=== PATIENT | male | born 1990 | race African-American/Black ===

== ENCOUNTER 2018-04-26 19:02 | Emergency (ER) | payer MEDICAID ==
[~2018-04-26] VITALS: Ht 177.8 cm; Wt 72.6 kg
[2018-04-26] MEDS ORDERED: IBUPROFEN600 MG ORAL (20:48)
[2018-04-26] MEDS ORDERED: AUGMENTIN 875-1 EAC1 ORAL (20:48)
[2018-04-26 20:55] VITALS: BP_SYST 127; BP_DIAS 62; BP_DIAS 63
--- NOTE | 2018-04-26 21:10 | Diagnostic Imaging Report ---
EXAM: XR Left Hand Complete, 3 or More Views CLINICAL HISTORY: PAIN TECHNIQUE: Frontal, lateral and oblique views of the left hand. COMPARISON: No relevant prior studies available. FINDINGS: Bones/joints: Unremarkable. No acute fracture. No dislocation. Soft tissues: Suspect mild soft tissue swelling the dorsum of hand. No radiopaque foreign body. IMPRESSION: No fracture.
--- NOTE | 2018-04-26 22:04 | Emergency Room Report ---
History of Present Illness General Chief Complaint: Skin Rash/Abscess Source: Patient Present Illness HPI Patient is a 28-year-old male who presented after increased swelling to his left hand. Patient had gradual onset of symptoms over the past 3 weeks. Patient had previously sliced his finger with a box shook patcher. I reported having gradually increasing swelling. He denies any fever. He reports having had difficulty moving his fingers. He denies any numbness. Allergies: Coded Allergies: IODINE (Verified Allergy, Unknown, 04/26/18) Patient History Past Medical History: see triage record Reviewed Nursing Documentation: PMH: Agreed; PSxH: Agreed Nursing Documentation-PMH Past Medical History: No History, Except For Hx Asthma: Yes Review of Systems All Other Systems: negative except mentioned in HPI Physical Exam Vital Signs Date Time Temp Pulse Resp B/P (MAP) Pulse Ox O2 Delivery O2 Flow Rate FiO2 04/26/18 19:47 99.1 Room Air 99.1 04/26/18 20:55 67 16 127/62 98 General Appearance: well appearing, no apparent distress, alert, GCS 15 Head: normocephalic, atraumatic ENT: hearing grossly normal, normal voice Neck: full range of motion, supple Respiratory: no respiratory distress, speaking full sentences Musculoskeletal: no calf tenderness, swelling - erythema Neurologic: normal inspection, alert, oriented x3, responsive, normal gait Psychiatric: mood/affect normal Skin: no rash Medical Decision Making Diagnostic Impression: Primary Impression: Cellulitis of hand ER Course Patient presented for hand swelling. Differential diagnosis included fracture, osteomyelitis, dislocation, abscess, contusion. X-ray imaging was ordered. X- ray imaging of the left hand 3 views read by radiology showed soft tissue swelling without evident fracture or malalignment. Patient given prescription for oral antibiotics.The patient was advised advised to follow-up with hand surgeon. He was noted to have some evidence of infection however given the chronicity of this it appears to be amenable to trial of outpatient antibiotics. The patient was advised to have wound rechecked with his physician in 2 days. Other X-Ray Diagnostic Results Other X-Ray Diagnostic Results : # of Views/Limited Vs Complete: 3 View Indication: Pain EP Interpretation: No Interpretation: no dislocation, no fractures Impression: Other - Soft tissue swelling Electronically Signed by: Electronically signed by Dr. Felipe Reynolds M.D. Last Vital Signs Date Time Temp Pulse Resp B/P (MAP) Pulse Ox O2 Delivery O2 Flow Rate FiO2 04/26/18 20:55 99.1 16 127/63 98 Room Air 99.1 04/26/18 20:55 67 Status: improved Disposition: HOME, SELF-CARE Condition: Stable Scripts Ibuprofen* (MOTRIN*) 600 Mg Tablet 600 MG ORAL Q8H PRN for For Pain, #30 TAB 0 Refills Prov: Felipe Reynolds MD 04/26/18 Amoxicillin/Potassium Clav 875-125* (AUGMENTIN 875-125 TABLET*) 1 Each Tablet 1 TAB ORAL TWICE A DAY, #14 TAB Prov: Felipe Reynolds MD 04/26/18 Patient Instructions: Cellulitis Felipe Reynolds MD Apr 26, 2018 22:04
== END 2018-04-26 20:55 | disposition home or self-care (01) ==
LOC: EMR 20:25
DX: L03.114 Cellulitis of left upper limb (principal); Z91.041 Radiographic dye allergy status
CPT/HCPCS: 99284